=== PATIENT | male | born 1950 | race Two or more races ===

== ENCOUNTER 2017-07-28 15:14 | Outpatient (CLI) | payer OTHER ==
[~2017-07-28 15:14] MED LIST: SEPTRA DS TABLE1 TAB PO
== END 2017-07-28 15:19 | disposition home or self-care (01) ==
LOC: LAB 15:14
DX: C61 Malignant neoplasm of prostate (principal)

== ENCOUNTER 2017-09-30 07:48 | Outpatient (CLI) | payer OTHER | END 2017-09-30 07:58 | disposition home or self-care (01) | LOC: LAB 07:48 | DX: E11.9 Type 2 diabetes mellitus without complications (principal); E11.65 Type 2 diabetes mellitus with hyperglycemia; E78.2 Mixed hyperlipidemia; I10 Essential (primary) hypertension; E66.09 Other obesity due to excess calories ==

== ENCOUNTER 2017-12-27 15:16 | Outpatient (CLI) | payer OTHER | END 2017-12-27 15:41 | disposition home or self-care (01) | LOC: RAD 15:16 | DX: M15.8 Other polyosteoarthritis (principal); M25.9 Joint disorder, unspecified ==

== ENCOUNTER → 2018-01-03 | Outpatient (CLI) | payer OTHER | END | disposition home or self-care (01) | LOC: MRI 08:42 | DX: M25.661 Stiffness of right knee, not elsewhere classified (principal); S83.203A Other tear of unspecified meniscus, current injury, right knee, initial encounter | CPT/HCPCS: 73721 ==

== ENCOUNTER 2018-01-24 11:16 | Outpatient (CLI) | payer OTHER | END 2018-01-24 12:23 | disposition home or self-care (01) | LOC: NUCLEAR 11:16 | DX: M85.9 Disorder of bone density and structure, unspecified (principal); M81.0 Age-related osteoporosis without current pathological fracture ==

== ENCOUNTER 2018-02-08 09:16 | Outpatient (CLI) | payer OTHER | END 2018-02-08 09:20 | disposition home or self-care (01) | LOC: LAB 09:16 | DX: I10 Essential (primary) hypertension (principal); E11.9 Type 2 diabetes mellitus without complications ==

== ENCOUNTER 2018-02-10 08:10 | Outpatient (CLI) | payer OTHER | END 2018-02-10 08:15 | disposition home or self-care (01) | LOC: LAB 08:10 | DX: C61 Malignant neoplasm of prostate (principal) ==

== ENCOUNTER → 2018-02-15 07:58 | Outpatient (CLI) | payer OTHER | END | disposition home or self-care (01) | LOC: LAB 07:58 | DX: M23.206 Derangement of unspecified meniscus due to old tear or injury, right knee (principal); I48.2 Chronic atrial fibrillation; I10 Essential (primary) hypertension; E11.9 Type 2 diabetes mellitus without complications; Z79.01 Long term (current) use of anticoagulants; D50.8 Other iron deficiency anemias; R94.5 Abnormal results of liver function studies ==

== ENCOUNTER 2018-02-17 07:19 | Outpatient (CLI) | payer OTHER ==
[~2018-02-17] VITALS: Ht 182.9 cm; Wt 82.6 kg
== END 2018-02-17 07:45 | disposition home or self-care (01) ==
LOC: OFIC 805 07:19
DX: J31.0 Chronic rhinitis (principal); J34.3 Hypertrophy of nasal turbinates; H69.83 Other specified disorders of Eustachian tube, bilateral; H90.3 Sensorineural hearing loss, bilateral; M26.612 Adhesions and ankylosis of left temporomandibular joint

== ENCOUNTER 2018-03-22 11:48 | Outpatient (CLI) | payer OTHER | END 2018-03-22 12:03 | disposition home or self-care (01) | LOC: LAB 11:48 | DX: Z85.46 Personal history of malignant neoplasm of prostate (principal) ==

== ENCOUNTER 2018-06-23 07:25 | Outpatient (CLI) | payer OTHER ==
[~2018-06-23] VITALS: Ht 182.9 cm; Wt 82.6 kg
== END 2018-06-23 07:45 | disposition home or self-care (01) ==
LOC: OFIC 805 07:25
DX: H90.3 Sensorineural hearing loss, bilateral (principal); H61.23 Impacted cerumen, bilateral

== ENCOUNTER 2018-06-27 08:23 | Outpatient (CLI) | payer OTHER | END 2018-06-27 15:00 | disposition home or self-care (01) | LOC: LAB 08:23 | DX: E78.2 Mixed hyperlipidemia (principal); I10 Essential (primary) hypertension; E66.09 Other obesity due to excess calories; E11.65 Type 2 diabetes mellitus with hyperglycemia ==

== ENCOUNTER 2018-08-07 07:41 | Outpatient (CLI) | payer OTHER | END 2018-08-07 07:50 | disposition home or self-care (01) | LOC: LAB 07:41 | DX: C61 Malignant neoplasm of prostate (principal) ==

== ENCOUNTER 2018-09-15 07:33 | Outpatient (CLI) | payer OTHER ==
[~2018-09-15] VITALS: Ht 182.9 cm; Wt 82.6 kg
== END 2018-09-15 07:45 | disposition home or self-care (01) ==
LOC: OFIC 805 07:33
DX: J31.0 Chronic rhinitis (principal); M26.612 Adhesions and ankylosis of left temporomandibular joint

== ENCOUNTER 2018-11-22 07:39 | Outpatient (CLI) | payer OTHER | END 2018-11-22 07:52 | disposition home or self-care (01) | LOC: LAB 07:39 | DX: E11.65 Type 2 diabetes mellitus with hyperglycemia (principal); E78.49 Other hyperlipidemia; Z12.11 Encounter for screening for malignant neoplasm of colon ==

== ENCOUNTER 2019-02-16 07:57 | Outpatient (CLI) | payer OTHER ==
[~2019-02-16] VITALS: Ht 182.9 cm; Wt 85.7 kg
== END 2019-02-16 14:26 | disposition home or self-care (01) ==
LOC: OFIC 805 07:57
DX: H90.3 Sensorineural hearing loss, bilateral (principal); J34.3 Hypertrophy of nasal turbinates; H69.83 Other specified disorders of Eustachian tube, bilateral; M26.613 Adhesions and ankylosis of bilateral temporomandibular joint; J31.0 Chronic rhinitis; H90.A32 Mixed conductive and sensorineural hearing loss, unilateral, left ear with restricted hearing on the contralateral side

== ENCOUNTER → 2019-02-23 07:39 | Outpatient (CLI) | payer OTHER | END | disposition home or self-care (01) | LOC: LAB 07:39 | DX: C61 Malignant neoplasm of prostate (principal) ==

== ENCOUNTER 2019-05-26 08:15 | Outpatient (CLI) | payer OTHER | END 2019-05-26 13:26 | disposition home or self-care (01) | LOC: LAB 08:15 | DX: E11.65 Type 2 diabetes mellitus with hyperglycemia (principal); E78.49 Other hyperlipidemia; I10 Essential (primary) hypertension ==

== ENCOUNTER → 2019-08-08 | Outpatient (CLI) | payer OTHER | END | disposition home or self-care (01) | LOC: RAD 15:10 | DX: R07.89 Other chest pain (principal); M54.89 Other dorsalgia ==

== ENCOUNTER 2019-08-27 08:14 | Outpatient (CLI) | payer OTHER ==
[2019-08-31] MEDS ORDERED: MONTELUKAST SODI4 M1 PO (14:29)
[2019-08-31] MEDS ORDERED: JANUMET 50-1,01 EACH PO (14:29)
[2019-08-31] MEDS ORDERED: IVOKANA PO (14:30)
[2019-08-31] MEDS ORDERED: LIPITOR40 MG PO (14:31)
[2019-08-31] MEDS ORDERED: LISINOPRIL5 MG PO (14:31)
[2019-08-31] MEDS ORDERED: LANTUS SOL100 UNIT/1 SUBCUTANEO (14:32)
== END 2019-08-27 15:00 | disposition home or self-care (01) ==
LOC: LAB 08:14
DX: C61 Malignant neoplasm of prostate (principal)

== ENCOUNTER 2019-08-27 09:05 | Outpatient (CLI) | payer OTHER ==
[2019-08-31] MEDS ORDERED: JANUMET 50-1,01 EACH PO (14:29)
[2019-08-31] MEDS ORDERED: MONTELUKAST SODI4 M1 PO (14:29)
[2019-08-31] MEDS ORDERED: IVOKANA PO (14:30)
[2019-08-31] MEDS ORDERED: LIPITOR40 MG PO (14:31)
[2019-08-31] MEDS ORDERED: LISINOPRIL5 MG PO (14:31)
[2019-08-31] MEDS ORDERED: LANTUS SOL100 UNIT/1 SUBCUTANEO (14:32)
== END 2019-08-27 09:11 | disposition home or self-care (01) ==
LOC: RAD 09:05
DX: R05 Cough (principal)

== ENCOUNTER 2019-09-25 08:05 | Outpatient (CLI) | payer OTHER ==
[~2019-09-25 08:05] MED LIST changes: +IVOKANA PO; +JANUMET 50-1,01 EACH PO; +LANTUS SOL100 UNIT/1 SUBCUTANEO; +LIPITOR40 MG PO; +LISINOPRIL5 MG PO; +MONTELUKAST SODI4 M1 PO
== END 2019-09-25 08:11 | disposition home or self-care (01) ==
LOC: LAB 08:05
DX: E11.65 Type 2 diabetes mellitus with hyperglycemia (principal); E78.2 Mixed hyperlipidemia; I10 Essential (primary) hypertension; E66.09 Other obesity due to excess calories

== ENCOUNTER → 2019-12-14 06:48 | Outpatient (CLI) | payer OTHER | END | disposition home or self-care (01) | LOC: LAB 06:48 | PROVIDERS: ATTEND Internal Medicine Endocrinology, Diabetes & Metabolism | DX: E66.3 Overweight (principal); E11.65 Type 2 diabetes mellitus with hyperglycemia; E78.2 Mixed hyperlipidemia; I10 Essential (primary) hypertension ==

== ENCOUNTER 2020-02-25 09:04 | Outpatient (CLI) | payer OTHER | END 2020-02-25 15:00 | disposition home or self-care (01) | LOC: LAB 09:04 | PROVIDERS: ATTEND Urology | DX: C61 Malignant neoplasm of prostate (principal) ==

== ENCOUNTER 2020-04-25 08:26 | Outpatient (CLI) | payer OTHER | END 2020-04-25 08:31 | disposition home or self-care (01) | LOC: LAB 08:26 | PROVIDERS: ATTEND General Practice | DX: I11.9 Hypertensive heart disease without heart failure (principal); E11.69 Type 2 diabetes mellitus with other specified complication; E66.3 Overweight ==

== ENCOUNTER 2020-06-03 12:58 | Outpatient (CLI) | payer OTHER | END 2020-06-03 13:09 | disposition home or self-care (01) | LOC: RAD 12:58 | DX: M19.041 Primary osteoarthritis, right hand (principal) ==

== ENCOUNTER 2020-08-27 09:47 | Outpatient (CLI) | payer OTHER | END 2020-08-27 09:54 | disposition home or self-care (01) | LOC: LAB 09:47 | PROVIDERS: ATTEND General Practice | DX: E78.00 Pure hypercholesterolemia, unspecified (principal); E11.9 Type 2 diabetes mellitus without complications; E66.3 Overweight ==

== ENCOUNTER 2020-09-10 12:52 | Outpatient (CLI) | payer OTHER | END 2020-09-10 12:57 | disposition home or self-care (01) | LOC: LAB 12:52 | PROVIDERS: ATTEND Urology | DX: C61 Malignant neoplasm of prostate (principal) ==

== ENCOUNTER 2021-01-17 09:11 | Outpatient (CLI) | payer OTHER | END 2021-01-17 09:16 | disposition home or self-care (01) | LOC: RAD 09:11 | DX: I10 Essential (primary) hypertension (principal); J20.8 Acute bronchitis due to other specified organisms; R06.02 Shortness of breath ==

== ENCOUNTER → 2021-01-19 09:53 | Outpatient (CLI) | payer OTHER | END | disposition home or self-care (01) | LOC: LAB 09:53 | PROVIDERS: ATTEND General Practice | DX: E11.42 Type 2 diabetes mellitus with diabetic polyneuropathy (principal); Z12.11 Encounter for screening for malignant neoplasm of colon; Z12.5 Encounter for screening for malignant neoplasm of prostate; J20.0 Acute bronchitis due to Mycoplasma pneumoniae; R50.84 Febrile nonhemolytic transfusion reaction; N40.1 Benign prostatic hyperplasia with lower urinary tract symptoms ==

== ENCOUNTER → 2021-07-01 08:00 | Outpatient (CLI) | payer OTHER | END | disposition home or self-care (01) | LOC: LAB 08:00 | PROVIDERS: ATTEND Internal Medicine Endocrinology, Diabetes & Metabolism | DX: D64.89 Other specified anemias (principal); E03.8 Other specified hypothyroidism; E06.3 Autoimmune thyroiditis; E78.2 Mixed hyperlipidemia; E55.9 Vitamin D deficiency, unspecified; M81.0 Age-related osteoporosis without current pathological fracture; M85.89 Other specified disorders of bone density and structure, multiple sites; E11.65 Type 2 diabetes mellitus with hyperglycemia; R80.8 Other proteinuria; E11.22 Type 2 diabetes mellitus with diabetic chronic kidney disease; R94.5 Abnormal results of liver function studies; E22.1 Hyperprolactinemia ==

== ENCOUNTER → 2021-07-02 07:28 | Outpatient (CLI) | payer OTHER | END | disposition home or self-care (01) | LOC: LAB 07:28 | PROVIDERS: ATTEND Internal Medicine Endocrinology, Diabetes & Metabolism | DX: E03.8 Other specified hypothyroidism (principal); E78.2 Mixed hyperlipidemia; E55.9 Vitamin D deficiency, unspecified; M81.0 Age-related osteoporosis without current pathological fracture; M85.88 Other specified disorders of bone density and structure, other site; E11.65 Type 2 diabetes mellitus with hyperglycemia; R80.8 Other proteinuria; E11.22 Type 2 diabetes mellitus with diabetic chronic kidney disease; R94.5 Abnormal results of liver function studies; E22.1 Hyperprolactinemia ==

== ENCOUNTER 2022-01-11 07:37 | Outpatient (CLI) | payer OTHER | END 2022-01-11 07:47 | disposition home or self-care (01) | LOC: LAB 07:37 | DX: E11.40 Type 2 diabetes mellitus with diabetic neuropathy, unspecified (principal); E11.65 Type 2 diabetes mellitus with hyperglycemia; E78.00 Pure hypercholesterolemia, unspecified ==

== ENCOUNTER 2022-03-13 07:04 | Outpatient (CLI) | payer OTHER | END 2022-03-13 07:22 | disposition home or self-care (01) | LOC: LAB 07:04 | DX: E03.8 Other specified hypothyroidism (principal); E11.65 Type 2 diabetes mellitus with hyperglycemia; R80.9 Proteinuria, unspecified; D64.9 Anemia, unspecified; E29.1 Testicular hypofunction; M85.89 Other specified disorders of bone density and structure, multiple sites; Z13.820 Encounter for screening for osteoporosis ==

== ENCOUNTER → 2022-03-29 08:23 | Outpatient (CLI) | payer OTHER | END | disposition home or self-care (01) | LOC: LAB 08:23 | PROVIDERS: ATTEND Urology | DX: C61 Malignant neoplasm of prostate (principal) ==

== ENCOUNTER 2022-07-29 08:13 | Outpatient (CLI) | payer OTHER | END 2022-07-29 08:14 | disposition home or self-care (01) | LOC: LAB 08:13 | DX: D64.9 Anemia, unspecified (principal); E03.8 Other specified hypothyroidism; E78.2 Mixed hyperlipidemia; E55.9 Vitamin D deficiency, unspecified; M81.0 Age-related osteoporosis without current pathological fracture; M85.89 Other specified disorders of bone density and structure, multiple sites; R73.01 Impaired fasting glucose; D35.2 Benign neoplasm of pituitary gland ==

== ENCOUNTER 2022-11-27 07:54 | Outpatient (CLI) | payer OTHER | END 2022-11-27 07:59 | disposition home or self-care (01) | LOC: LAB 07:54 | PROVIDERS: ATTEND Internal Medicine Endocrinology, Diabetes & Metabolism | DX: E11.65 Type 2 diabetes mellitus with hyperglycemia (principal); E03.8 Other specified hypothyroidism; E78.2 Mixed hyperlipidemia; R80.9 Proteinuria, unspecified; E11.22 Type 2 diabetes mellitus with diabetic chronic kidney disease; D64.9 Anemia, unspecified ==

== ENCOUNTER 2022-12-14 09:19 | Outpatient (CLI) | payer OTHER | END 2022-12-14 09:28 | disposition home or self-care (01) | LOC: SONOGRAMA 09:19 | PROVIDERS: ATTEND General Practice | DX: N50.82 Scrotal pain (principal) ==

== ENCOUNTER 2023-01-03 09:01 | Outpatient (CLI) | payer OTHER | END 2023-01-03 09:03 | disposition home or self-care (01) | LOC: LAB 09:01 | PROVIDERS: ATTEND Specialist | DX: N45.1 Epididymitis (principal); N40.0 Benign prostatic hyperplasia without lower urinary tract symptoms ==

== ENCOUNTER 2023-01-04 07:55 | Outpatient (CLI) | payer OTHER | END 2023-01-04 07:58 | disposition home or self-care (01) | LOC: LAB 07:55 | PROVIDERS: ATTEND Specialist | DX: N40.1 Benign prostatic hyperplasia with lower urinary tract symptoms (principal); E78.5 Hyperlipidemia, unspecified ==

== ENCOUNTER → 2023-04-25 07:12 | Outpatient (CLI) | payer OTHER ==
[2023-04-25 08:15] LABS: HEMATOCRIT 42.7 % (39.0-48.0); MEAN CELL VOLUME 87.3 fL (80.0-100.00); MEAN CORPUSCULAR HEMOGLOBIN 28.7 pg (27.00-32.0); MEAN CORPUSCULAR HGB CONC 32.9 g/dl (32.0-36.0); PLATELET COUNT 215 K/uL (150-450); RED BLOOD COUNT 4.89 M/uL (4.00-6.00); RED CELL DISTRIBUTION WIDTH 13.8 % (11.5-14.5)
[2023-04-25 08:28] LABS: ALBUMIN 3.4 gm/dL (3.4-5.0); BILIRUBIN TOTAL 0.49 mg/dL (0.3-1.2); CALCIUM 8.8 mg/dL (8.5-10.1); CHOL HDL RATIO 2.2 (0-5.0); CREATININE SERUM 0.74 mg/dL (0.70-1.30); GFR 103.68; GLOBULINA 2.9 G/DL (2.4-3.5); POTASSIUM 4.29 mEq/L (3.5-5.1); T4 FREE 0.87 NG/ML (0.76-1.46); TOTAL PROTEIN 6.3 gm/dL (6.4-8.2); TSH 3.52 uIU/mL (0.358-3.74)
== END | disposition home or self-care (01) ==
LOC: LAB 07:12
PROVIDERS: ATTEND Internal Medicine Endocrinology, Diabetes & Metabolism
DX: E03.8 Other specified hypothyroidism (principal); E78.2 Mixed hyperlipidemia; E11.65 Type 2 diabetes mellitus with hyperglycemia; R80.9 Proteinuria, unspecified; D64.89 Other specified anemias; R94.5 Abnormal results of liver function studies

== ENCOUNTER 2023-05-10 08:12 | Outpatient (CLI) | payer OTHER | END 2023-05-10 12:46 | disposition home or self-care (01) | LOC: LAB 08:12 | PROVIDERS: ATTEND Urology | DX: C61 Malignant neoplasm of prostate (principal) ==

== ENCOUNTER → 2023-09-03 10:16 | Outpatient (CLI) | payer OTHER ==
[2023-09-03 12:46] LABS: ANION GAP 7 (10.0-20.0); BLOOD UREA NITROGEN 16 mg/dL (7-18); BUN CREA RATIO 25 (7.0-25.0); CALCIUM 9.2 mg/dL (8.5-10.1); CARBON DIOXIDE 31 mEq/L (21-32); CHLORIDE 110 mmol/L (98-107); CHOL HDL RATIO 2.5 (0-5.0); CHOLESTEROL 130 mg/dL (0-200); CREATININE SERUM 0.64 mg/dL (0.70-1.30); GFR 122.59; GLUCOSE FASTING 143 mg/dL (65-100); HDL 53 mg/dl (40-60); LDL 59 mg/dl (0-130); OSMOLALITY SERUM 289 MOSM/KG (275-295); POTASSIUM 4.51 mEq/L (3.5-5.1); SODIUM 143 mmol/L (136-145); TRIGLYCERIDES 90 mg/dL (0-150); VLDL 18 (0-39)
[2023-09-03 12:47] LABS: PROSTATIC SPECIFIC ANTIGEN < 0.010 NG/ML (0.010-4.00)
== END | disposition home or self-care (01) ==
LOC: LAB 10:16
PROVIDERS: ATTEND Internal Medicine Endocrinology, Diabetes & Metabolism
DX: E11.65 Type 2 diabetes mellitus with hyperglycemia (principal); Z85.46 Personal history of malignant neoplasm of prostate; E03.8 Other specified hypothyroidism; E06.3 Autoimmune thyroiditis; E78.2 Mixed hyperlipidemia; E55.9 Vitamin D deficiency, unspecified; M85.89 Other specified disorders of bone density and structure, multiple sites

== ENCOUNTER 2023-09-05 08:12 | Outpatient (CLI) | payer OTHER | END 2023-09-05 08:26 | disposition home or self-care (01) | LOC: SONOGRAMA 08:12 | DX: N28.89 Other specified disorders of kidney and ureter (principal) ==

== ENCOUNTER 2023-09-09 13:11 | Outpatient (CLI) | payer OTHER | END 2023-09-09 13:14 | disposition home or self-care (01) | LOC: NUCLEAR 13:11 | PROVIDERS: ATTEND Internal Medicine Endocrinology, Diabetes & Metabolism | DX: M85.89 Other specified disorders of bone density and structure, multiple sites (principal); Z13.820 Encounter for screening for osteoporosis; M81.0 Age-related osteoporosis without current pathological fracture ==

== ENCOUNTER 2023-10-27 10:14 | Outpatient (CLI) | payer OTHER ==
[2023-10-27 11:52] LABS: ob POSITIVE (NEGATIVE)
== END 2023-10-27 10:16 | disposition home or self-care (01) ==
LOC: LAB 10:14
PROVIDERS: ATTEND General Practice
DX: Z12.11 Encounter for screening for malignant neoplasm of colon (principal)

== ENCOUNTER 2023-10-27 11:14 | Outpatient (CLI) | payer OTHER | END 2023-10-27 11:19 | disposition home or self-care (01) | LOC: RAD 11:14 | PROVIDERS: ATTEND General Practice | DX: I70.0 Atherosclerosis of aorta (principal); I11.9 Hypertensive heart disease without heart failure ==

== ENCOUNTER 2023-10-28 09:52 | Outpatient (CLI) | payer OTHER ==
[2023-10-28 11:09] LABS: CREATININE SERUM 0.77 mg/dL (0.70-1.30)
[2023-10-28 11:28] LABS: ALBUMIN 3.6 gm/dL (3.4-5.0); BILIRUBIN TOTAL 0.72 mg/dL (0.3-1.2); CALCIUM 8.9 mg/dL (8.5-10.1); CREATININE SERUM 0.7 mg/dL (0.70-1.30); GFR 110.54; GLOBULINA 2.8 G/DL (2.4-3.5); POTASSIUM 5.01 mEq/L (3.5-5.1); TOTAL PROTEIN 6.4 gm/dL (6.4-8.2)
== END 2023-10-28 09:53 | disposition home or self-care (01) ==
LOC: LAB 09:52
DX: K57.32 Diverticulitis of large intestine without perforation or abscess without bleeding (principal)

== ENCOUNTER 2023-11-02 09:34 | Outpatient (CLI) | payer OTHER | END 2023-11-02 09:35 | disposition home or self-care (01) | LOC: NUCLEAR 09:34 | PROVIDERS: ATTEND General Practice | DX: I70.90 Unspecified atherosclerosis (principal); I70.0 Atherosclerosis of aorta; E11.69 Type 2 diabetes mellitus with other specified complication ==

== ENCOUNTER → 2024-01-20 08:19 | Outpatient (CLI) | payer OTHER ==
[2024-01-20 11:30] LABS: ALBUMIN 3.5 gm/dL (3.4-5.0); BILIRUBIN TOTAL 0.51 mg/dL (0.3-1.2); CALCIUM 8.6 mg/dL (8.5-10.1); CHOL HDL RATIO 2.1 (0-5.0); CREATININE SERUM 0.81 mg/dL (0.70-1.30); GFR 93.41; GLOBULINA 2.7 G/DL (2.4-3.5); POTASSIUM 4.61 mEq/L (3.5-5.1); T4 FREE 0.8 NG/ML (0.76-1.46); TOTAL PROTEIN 6.2 gm/dL (6.4-8.2); TSH 1.87 uIU/mL (0.358-3.74)
== END | disposition home or self-care (01) ==
LOC: LAB 08:19
PROVIDERS: ATTEND Internal Medicine Endocrinology, Diabetes & Metabolism
DX: D50.9 Iron deficiency anemia, unspecified (principal); E03.8 Other specified hypothyroidism; E78.2 Mixed hyperlipidemia; E11.65 Type 2 diabetes mellitus with hyperglycemia; R94.5 Abnormal results of liver function studies

== ENCOUNTER → 2024-06-29 09:18 | Outpatient (CLI) | payer OTHER | END | disposition home or self-care (01) | LOC: LAB 09:18 | PROVIDERS: ATTEND Urology | DX: C61 Malignant neoplasm of prostate (principal) ==

== ENCOUNTER 2024-07-06 09:06 | Outpatient (CLI) | payer OTHER ==
[2024-07-06 11:14] LABS: CALCIUM 8.6 mg/dL (8.5-10.1); CHOL HDL RATIO 1.9 (0-5.0); CREATININE SERUM 0.63 mg/dL (0.70-1.30); GFR 124.49; POTASSIUM 3.92 mEq/L (3.5-5.1); T4 FREE 0.81 NG/ML (0.76-1.46); TSH 1.08 uIU/mL (0.358-3.74)
== END 2024-07-06 09:11 | disposition home or self-care (01) ==
LOC: LAB 09:06
PROVIDERS: ATTEND Internal Medicine Endocrinology, Diabetes & Metabolism
DX: E11.65 Type 2 diabetes mellitus with hyperglycemia (principal); E03.8 Other specified hypothyroidism; E78.2 Mixed hyperlipidemia; E55.9 Vitamin D deficiency, unspecified; R80.9 Proteinuria, unspecified

== ENCOUNTER 2024-07-06 10:13 | Outpatient (CLI) | payer OTHER | END 2024-07-06 10:17 | disposition home or self-care (01) | LOC: RAD 10:13 | PROVIDERS: ATTEND General Practice | DX: M34.2 Systemic sclerosis induced by drug and chemical (principal); J01.90 Acute sinusitis, unspecified ==

== ENCOUNTER 2024-07-30 07:59 | Outpatient (CLI) | payer OTHER | END 2024-07-30 08:08 | disposition home or self-care (01) | LOC: LAB 07:59 | DX: C61 Malignant neoplasm of prostate (principal) ==

== ENCOUNTER 2024-08-03 07:42 | Outpatient (CLI) | payer OTHER | END 2024-08-03 07:43 | disposition home or self-care (01) | LOC: NUCLEAR 07:42 | PROVIDERS: ATTEND Internal Medicine Endocrinology, Diabetes & Metabolism | DX: E11.52 Type 2 diabetes mellitus with diabetic peripheral angiopathy with gangrene (principal) ==

== ENCOUNTER 2024-12-17 07:46 | Outpatient (CLI) | payer OTHER ==
[2024-12-17 09:27] LABS: ALBUMIN 3.6 gm/dL (3.4-5.0); BILIRUBIN TOTAL 0.75 mg/dL (0.3-1.2); CALCIUM 8.7 mg/dL (8.5-10.1); CHOL HDL RATIO 1.8 (0-5.0); CREATININE SERUM 0.74 mg/dL (0.70-1.30); GFR 103.39; GLOBULINA 2.6 G/DL (2.4-3.5); POTASSIUM 4.09 mEq/L (3.5-5.1); T4 FREE 1.02 NG/ML (0.76-1.46); TOTAL PROTEIN 6.2 gm/dL (6.4-8.2); TSH 1.98 uIU/mL (0.358-3.74)
== END 2024-12-17 07:47 | disposition home or self-care (01) ==
LOC: LAB 07:46
PROVIDERS: ATTEND Internal Medicine Endocrinology, Diabetes & Metabolism
DX: E03.8 Other specified hypothyroidism (principal); E78.2 Mixed hyperlipidemia; E11.65 Type 2 diabetes mellitus with hyperglycemia; R80.9 Proteinuria, unspecified; R94.5 Abnormal results of liver function studies

== ENCOUNTER 2025-03-01 09:07 | Outpatient (CLI) | payer OTHER | END 2025-03-01 09:12 | disposition home or self-care (01) | LOC: LAB 09:07 | DX: C61 Malignant neoplasm of prostate (principal) ==

== ENCOUNTER 2025-04-15 07:47 | Outpatient (CLI) | payer OTHER ==
[2025-04-15 08:38] LABS: BASO % 0.2 % (0.1-1.2); EOS # 0.05 (0.04-0.54); EOS % 1.0 % (0.7-7.0); LYMPH # 1.73 (1.18-3.74); LYMPH % 33.9 % (19.3-53.1); MEAN PLATELET VOLUME 10.90 fl (9.4-12.4); MONO # 0.52 (0.24-0.82); MONO % 10.2 % (4.7-12.5); NEUT # 2.79 (1.56-6.13); NEUT % 54.7 % (34.0-71.1); RED CELL DISTRIBUTION WIDTH 13.2 % (11.6-14.4)
[2025-04-15 09:25] LABS: ALT/SGPT 67.0 U/L (12-78); AST/SGOT 39.0 U/L (15-37); BILIRUBIN TOTAL 0.92 mg/dL (0.3-1.2); BUN CREA RATIO 17.0 (7.0-25.0); CHOL HDL RATIO 2.0 (0-5.0); CREATININE SERUM 0.65 mg/dL (0.70-1.30); FE 122.0 ug/dl (65-175); GFR 119.75; GLOBULINA 2.6 G/DL (2.4-3.5); GLUCOSE FASTING 119.0 mg/dL (65-100); HDL 62.0 mg/dl (40-60); LDL 40.0 mg/dl (0-130); OSMOLALITY SERUM 289.0 MOSM/KG (275-295); T4 FREE 0.82 NG/ML (0.76-1.46); TSH 2.65 uIU/mL (0.358-3.74); VLDL 18.0 (0-39)
[2025-04-15 12:00] LABS: FOLIC ACID 16.81 ng/ml (4.78-20); VITAMIN D3 25 HYDROXY 62.5 ng/ml (30-120)
== END 2025-04-15 07:51 | disposition home or self-care (01) ==
LOC: LAB 07:47
PROVIDERS: ATTEND Internal Medicine Endocrinology, Diabetes & Metabolism
DX: D51.9 Vitamin B12 deficiency anemia, unspecified (principal); D64.9 Anemia, unspecified

== ENCOUNTER 2025-07-04 08:45 | Outpatient (CLI) | payer OTHER | END 2025-07-04 08:51 | disposition home or self-care (01) | LOC: LAB 08:45 | DX: C61 Malignant neoplasm of prostate (principal) ==